=== PATIENT | male | born 1975 | race Caucasian/White ===

== ENCOUNTER 2020-10-17 17:09 | Inpatient (IN) | payer BC, SELFPAY ==
[2020-10-17] VITALS (8 sets, daily range): BP systolic 114–144; BP diastolic 68–82; PULSE 90–97; RESP 18–26; TEMP 36.8–38.5; O2SAT 90–100; BMI 34.2; BMI 34.0
--- NOTE | 2020-10-17 17:29 | EKG12_ITS ---
Test Reason : SOB Blood Pressure : / mmHG Vent. Rate : 097 BPM Atrial Rate : 097 BPM P-R Int : 156 ms QRS Dur : 080 ms QT Int : 340 ms P-R-T Axes : 035 032 043 degrees QTc Int : 431 ms Normal sinus rhythm Normal ECG Confirmed by JUAN JOSÉ HANEY, KIANNA ([id number]), photographic equipment inspector DANA LITTLEJOHN ([id number]) on 10/20/2020 2:18:29 PM Referred By: ЕЛЕНА Confirmed By:KIANNA CAN MD
--- NOTE | 2020-10-17 17:29 | CT_ITS ---
STUDY: CTA CHEST REASON FOR EXAM: Male, 44 years old. Hypoxia with walking in conversation, tachypnea, t RADIATION DOSAGE (If Supplied By Facility): CTDIvol = ( 15.04 ) mGy, DLP = ( 527.48 ) mGycm TECHNIQUE: The examination was performed with the intravenous administration of IV 100mL Isovue-370. Post-processing of the angiographic images was performed, with multiplanar reformation and 3D reconstruction. Individualized dose optimization techniques were used for this CT. COMPARISON: None. FINDINGS: 5.1 x 4.6 cm right thyroid cyst. Heart size and pericardium are unremarkable. The aorta is normal in caliber. No aneurysm or dissection. There is no mediastinal mass or adenopathy. There is no hilar or axillary adenopathy. Suboptimal pulmonary arterial opacification for evaluation of PE. No demonstrated embolus. Small subsegmental emboli could be missed. There is no pleural effusion. Extensive bilateral airspace disease consistent with pneumonia. Visualized abdomen is unremarkable. There is no osseous abnormality. CT/CTA Chest W/WO Contrast IMPRESSION: 1. Extensive bilateral pneumonia. Consider typical and atypical etiologies, including Covid-19 pneumonia. 2. Suboptimal pulmonary arterial opacification for evaluation of PE. No demonstrated pulmonary embolism. 3. Right thyroid cyst. Electronically Signed: Karley Damon MD at 19:35 EDT Tel , Service support ,
--- NOTE | 2020-10-17 17:35 | EDS_ITS ---
HPI History of Present Illness Chief Complaint: Shortness of Breath Detail of Chief Complaint: Covid symptoms that started 11 days ago Informant: patient, spouse/S.O. and PCP Onset/Context/Timing Onset: - (Today it was noted that his pulse ox went to 71% with walking) Context: sudden Timing: Continuous and Waxes and wanes Current Severity: Mild Maximum Severity: Severe Worsened by: Exertion and Coughing Relieved by: Nothing Associated Symptoms cough, rhinorrhea, post nasal drip, fever, sore throat, chills and sweats; Negative for ear pain, clear sputum, white sputum, yellow sputum or green sputum Chest Pain: Positive for None Narrative Narrative: Patient is a healthy 44-year-old medications on no meds who has a child that tested positive for Covid. The son is getting better. He has not. He has had a persistent fever. PE Risk Factors: Negative for Cancer, OCP + Smoking + > 35, Prior DVT or PE, Recent immobilization, Recent surgery and Recent travel Prior similar symptoms: Yes Recent Illness/Hospitalization: Yes PFSH PFSH no medical history Home Medications NK 10/17/20 [History Last Taken Unknown] no surgical history Social History (Updated 10/17/20 @ 17:[address] Sean Dobbins MD) household members: spouse and children Smoking Status: Never smoker alcohol intake: never substance use type: does not use ROS ROS ED Constitutional Constitutional ED: Reports chills, fever(s) and sweats Eyes Eyes: Denies blurry vision, change in vision or diplopia ENT ENT ED: Reports rhinorrhea and sore throat; Denies ear pain Cardiovascular Cardiovascular: Denies chest pain, orthopnea, palpitations or paroxysmal nocturnal dyspnea Respiratory/Chest Respiratory/Chest: Reports cough, dyspnea and dyspnea on exertion; Denies orthopnea, paroxysmal nocturnal dyspnea or sputum Gastrointestinal Gastrointestinal: Reports diarrhea; Denies abdominal pain, constipation, nausea or vomiting Genitourinary Genitourinary ED: Denies dysuria, hematuria or urinary frequency Musculoskeletal Musculoskeletal: Denies arthralgias, back pain, myalgias or neck pain Integumentary Denies rash Neurologic Neurologic: Denies headache(s), paresthesias or weakness Psychiatric Psychiatric: Denies anxiety, depression or suicidal thoughts Hematologic/Lymphatic Hematologic/Lymphatic: Denies easy bleeding or easy bruising EXAM Physical Exam Const Vital Signs: 10/17/20 17:09 10/17/20 17:33 10/17/20 19:14 Temperature 98.3 F Temperature Source Temporal Pulse Rate 97 Respiratory Rate 24 H Respiratory Effort Short of Breath Labored Respiratory Pattern Normal Blood Pressure 144/78 H 128/72 H Blood Pressure Mean 100 90 Pulse Ox 90 96 Oxygen Delivery Method Room Air Nasal Cannula Oxygen Flow Rate (L/min) 4 Positive well nourished, well developed and obese General Appearance ED: well developed Nutritional Appearance: obese HEENT Reports moist mucous membranes atraumatic and trauma; Negative for tenderness Eyes PERRL and EOMs intact bilaterally General Eye ED: Negative for pale conjunctiva or scleral icterus Neck no lymphadenopathy, supple, no meningeal signs and no JVD Resp normal respiratory effort and No clear to auscultation bilaterally Auscultation: rales right mid and lower Cardio regular rate, regular rhythm, S1 normal heart sound, S2 normal heart sound and no murmurs GI non-tender, non-distended and no masses Auscultation: normoactive bowel sounds Palpation: soft Back/Spine no CVA tenderness and normal to inspection Extremity normal to inspection Extremity Narrative: There is no asymmetry, swelling, discoloration, leg vein distention, palpable cords or tenderness along the distribution of the deep venous system. General Extremety ED: Negative for edema or tenderness General Extremity: Negative for edema Neuro oriented x3, CN's II-XII intact bilaterally and no sensory deficits noted Sensorium / Orientation: alert Motor Exam: strength 5/5 throughout Psych mental status grossly normal Thought Process: normal thought process Skin no wounds and skin turgor normal Skin Narrative: Patient has slight mottling noted on his back. Lesions: no lesions Rashes: no rashes MDM MDM MDM Narrative Medical decision making narrative: SPECT patient has Covid pneumonia. Since he is 11 days since onset concern for secondary infection and PE needs to be entertained. Work-up has been started. Since patient desaturated to 71% walking from triage to the examination room he will require admission. Lab Data Attestation: I reviewed the patient's lab results. Lab results narrative: CTA reveals no evidence of pulmonary embolus. Patient be admitted and treated for Covid pneumonia with respiratory failure Labs: Laboratory Results - last 24 hr 10/17/20 10/17/20 10/17/20 17:43 17:43 17:43 WBC 5.2 RBC 4.70 Hgb 15.0 Hct 44.1 MCV 93.8 MCH 31.9 MCHC 34.0 RDW Std Deviation 40.2 RDW Coeff of Ligia 11.7 Plt Count 203 MPV 10.5 Immature Gran % (Auto) 0.800 Neut % (Auto) 73.8 H Lymph % (Auto) 15.4 L [place] % (Auto) 10.0 Eos % (Auto) 0.0 Baso % (Auto) 0.0 Absolute Neuts (auto) 3.9 Absolute Lymphs (auto) 0.80 L Nucleated RBC % 0 Sodium 136 Potassium 4.1 Chloride 101 Carbon Dioxide 28.0 Anion Gap 7 BUN 11 Creatinine 1.04 Estim Creat Clear Calc 104.57 Est GFR (MDRD) Af Amer 100 Est GFR (MDRD) Non-Af 83 BUN/Creatinine Ratio 10.6 Glucose 96 Lactic Acid 1.7 Calcium 8.1 L Total Bilirubin 0.90 AST 112 H ALT 110 H Alkaline Phosphatase 68 Troponin I High Sens 10 Total Protein 7.5 Albumin 3.2 Globulin 4.3 H Albumin/Globulin Ratio 0.7 L Procalcitonin COVID-19 ([facility]) 10/17/20 10/17/20 17:43 17:50 WBC RBC Hgb Hct MCV MCH MCHC RDW Std Deviation RDW Coeff of Ligia Plt Count MPV Immature Gran % (Auto) Neut % (Auto) Lymph % (Auto) [place] % (Auto) Eos % (Auto) Baso % (Auto) Absolute Neuts (auto) Absolute Lymphs (auto) Nucleated RBC % Sodium Potassium Chloride Carbon Dioxide Anion Gap BUN Creatinine Estim Creat Clear Calc Est GFR (MDRD) Af Amer Est GFR (MDRD) Non-Af BUN/Creatinine Ratio Glucose Lactic Acid Calcium Total Bilirubin AST ALT Alkaline Phosphatase Troponin I High Sens Total Protein Albumin Globulin Albumin/Globulin Ratio Procalcitonin 0.10 H COVID-19 ([facility]ERAD) Positive Radiography Chest X-Ray - ED: 1 View (Bilateral interstitial infiltrates consistent with Covid. X-ray was interpreted by me at 1945.) Diagnostic Testing: Radiology Impression Chest CTA 10/17/20 17:29 IMPRESSION: 1. Extensive bilateral pneumonia. Consider typical and atypical etiologies, including Covid-19 pneumonia. 2. Suboptimal pulmonary arterial opacification for evaluation of PE. No demonstrated pulmonary embolism. 3. Right thyroid cyst. Electronically Signed: Karley Damon MD at 19:35 EDT Tel , Service support , EKG Initial EKG: Attestation: I personally reviewed and interpreted this EKG as follows: Interpretation: Sinus Rhythm (The EKG is normal. Ventricular rate is 97. MA interval 206 ms. Cures duration 80 ms. QT duration 3 and 40 ms. Dewey is normal.) Discharge Plan Dx/Rx/DC Orders Clinical Impression: Pneumonia due to 2019-nCoV, Acute respiratory failure with hypoxia Disposition Disposition: Acute Care Hospital [facility]
--- NOTE | 2020-10-17 17:35 | NURSING ---
NO OLD EKGS
[2020-10-17 18:06] LABS: Absolute Neutrophil Count 3.9 X10^3/uL (2.0-7.7); Hematocrit 44.1 % (40-54); Lymphocyte % 15.4 % (19-41); Mean Corpuscular Hgb 31.9 pg (27.0-32.0); Mean Corpuscular Volume 93.8 fL (80-94); Mean Platelet Vol. 10.5 fl (6.2-12.0); Monocyte# 0.52 X10^3/uL; NRBC Flagged by Analyzer 0 % (0-5); Neutrophil # 3.85 X10^3/uL (2.7-7.7); Neutrophil % 73.8 % (47-70); Platelet Count 203 K/mm3 (150-450); RBC Distribution Width CV 11.7 % (11.6-14.6); RBC Distribution Width SD 40.2 fl (35.1-43.9); White Blood Count 5.2 K/mm3 (4.4-11.0)
--- NOTE | 2020-10-17 18:28 | RAD_ITS ---
STUDY: X-RAY CHEST REASON FOR EXAM: Male, 44 years old. cough TECHNIQUE: Single AP portable view of the chest. COMPARISON: None. FINDINGS: No pleural effusion. Moderately extensive bilateral pulmonary opacities suspicious for pneumonia. Normal size heart. Normal mediastinum and deny. Normal visualized pulmonary arteries. Normal visualized aortic arch and descending thoracic aorta. Normal visualized thoracic spine. Normal visualized ribs, clavicles, and shoulders. There is no demonstrated abnormality of the visualized soft tissue structures of the upper abdomen. RAD/Chest 1 View (Portable) IMPRESSION: Bilateral pneumonia. Consider typical and atypical etiologies including Covid-19 pneumonia. Electronically Signed: Karley Damon MD at 20:00 EDT Tel , Service support ,
[2020-10-17 18:29] LABS: ALB/GLOB Ratio 0.7 RATIO (0.9-2.4); AST(SGOT) 112 U/L (15-37); Alanine Aminotransfer ALT/SGPT 110 U/L (16-61); Albumin, Serum 3.2 g/dL (3.2-5.0); Alkaline Phosphatase 68 U/L (45-117); Anion Gap 7 (5-15); BUN 11 mg/dL (7-18); BUN/Creat Ratio 10.6 RATIO (10-20); Calcium,Total 8.1 mg/dL (8.5-10.1); Chloride 101 mmol/L (98-107); Creatinine, Serum 1.04 mg/dL (0.70-1.30); EST Glomerular Filtration Rate 83 mL/min (>60); Est Glom Filt Rate - Afr Amer 100 mL/min (>60); Estimated Creatinine Clearance 104.57 ml/min; Globulin 4.3 g/dL (2.2-4.2); Glucose 96 mg/dL (74-106); Potassium 4.1 mmol/L (3.5-5.1); Protein, Total 7.5 g/dL (6.4-8.2); Sodium Level 136 mmol/L (136-145); Troponin-I HS 10 pg/mL (3.0-78.0)
[2020-10-17 18:34] LABS: Lactic Acid 1.7 mmol/L (0.4-1.9)
[2020-10-17 19:03] LABS: Probe Check PASS
[2020-10-17] MEDS: dexAMETHasone 10 MG/ML Vial IV (20:28)
--- NOTE | 2020-10-17 20:31 | HP.PCM.HOS_ITS ---
HPI - General HPI Narrative RAJI CAAL, is a 44 M who presents to the hospital with worsening shortness of breath. He started feeling sick with fevers 11 days ago. His son tested positive for Covid at school and has already completed quarantine and is back at school however he never got tested simply because he knew that his son had it so when he started having symptoms he knew that he had Covid. He did test positive today. He had a CT of the chest here in the ER which demonstrated no PEs but did show bilateral groundglass opacities consistent with viral pneumonia. He denies any chest pain, or lightheadedness. PFSH Home Medications ibuprofen 400 mg PO Q8H PRN 10/17/20 [History Last Taken 10/17/20] multivitamin 1 tab PO DAILY 10/17/20 [History Last Taken 10/16/20] Allergy/AdvReac Type Severity Reaction Status Date / Time No Known Allergies Allergy Verified 10/17/20 20:27 Social History (Updated 10/17/20 @ 17:[address] Sean Dobbins MD) household members: spouse and children Smoking Status: Never smoker alcohol intake: never substance use type: does not use ROS Constitutional Constitutional: Reports chills and fever(s); Denies fatigue or malaise Eyes Eyes: Denies blurry vision ENT HEENT: Denies headache(s) or nasal discharge Cardiovascular Cardiovascular: Denies chest pain, dyspnea on exertion or syncope Respiratory/Chest Respiratory/Chest: Reports cough and shortness of breath at rest; Denies shortness of breath with exertion Gastrointestinal Gastrointestinal: Reports diarrhea; Denies constipation, nausea or vomiting Genitourinary Genitourinary: Denies dysuria Neurologic Neurologic: Denies focal weakness, numbness or tremor(s) Psychiatric Psychiatric: Denies anxiety or depression Vital Signs Vital Signs Vital Signs: 10/17/20 17:09 10/17/20 17:33 10/17/20 19:14 Temperature 98.3 F Temperature Source Temporal Pulse Rate 97 Respiratory Rate 24 H Respiratory Effort Short of Breath Labored Respiratory Pattern Normal Blood Pressure 144/78 H 128/72 H Blood Pressure Mean 100 90 Pulse Ox 90 96 Oxygen Delivery Method Room Air Nasal Cannula Oxygen Flow Rate (L/min) 4 Weight Weight: 259 lb 11.272 oz Body Mass Index (BMI) 34.2 Physical Exam Const alert, oriented x3 and no apparent distress General Appearance: cooperative HEENT normocephalic and moist oral mucous membranes Eyes PERRL, EOMs intact bilaterally and conjunctivae normal Neck supple and no JVD Resp normal respiratory effort, no retractions and no use of accessory muscles Auscultation: crackles right base and diminished lung sounds left lower; Negative for rales, rhonchi or wheezes Cardio regular rate, regular rhythm, S1 normal heart sound, S2 normal heart sound and no murmurs GI soft to palpation, non-tender and non-distended; Negative for hepatosplenomegaly Extremity no clubbing, cyanosis or edema Skin no rashes or lesions noted Neuro no focal motor deficits and no sensory deficits noted Psych affect normal Appearance: appropriate Results Lab / Micro Data Result Diagrams: 10/17/20 17:43 10/17/20 17:43 Labs: Laboratory Results - last 24 hr 10/17/20 17:43: WBC 5.2, RBC 4.70, Hgb 15.0, Hct 44.1, MCV 93.8, MCH 31.9, MCHC 34.0, RDW Std Deviation 40.2, RDW Coeff of Ligia 11.7, Plt Count 203, MPV 10.5, Immature Gran % (Auto) 0.800, Neut % (Auto) 73.8 H, Lymph % (Auto) 15.4 L, [place] % (Auto) 10.0, Eos % (Auto) 0.0, Baso % (Auto) 0.0, Absolute Neuts (auto) 3.9, Absolute Lymphs (auto) 0.80 L, Nucleated RBC % 0 10/17/20 17:43: Sodium 136, Potassium 4.1, Chloride 101, Carbon Dioxide 28.0, Anion Gap 7, BUN 11, Creatinine 1.04, Estim Creat Clear Calc 104.57, Est GFR (MDRD) Af Amer 100, Est GFR (MDRD) Non-Af 83, BUN/Creatinine Ratio 10.6, Glucose 96, Calcium 8.1 L, Total Bilirubin 0.90, AST 112 H, ALT 110 H, Alkaline Phosphatase 68, Troponin I High Sens 10, Total Protein 7.5, Albumin 3.2, Globulin 4.3 H, Albumin/Globulin Ratio 0.7 L 10/17/20 17:43: Lactic Acid 1.7 10/17/20 17:43: Procalcitonin 0.10 H 10/17/20 17:50: COVID-19 ([facility]) Positive Radiology Impression Chest CTA 10/17/20 17:29 IMPRESSION: 1. Extensive bilateral pneumonia. Consider typical and atypical etiologies, including Covid-19 pneumonia. 2. Suboptimal pulmonary arterial opacification for evaluation of PE. No demonstrated pulmonary embolism. 3. Right thyroid cyst. Electronically Signed: Karley Damon MD at 19:35 EDT Tel , Service support , Chest X-Ray 10/17/20 18:28 IMPRESSION: Bilateral pneumonia. Consider typical and atypical etiologies including Covid-19 pneumonia. Electronically Signed: Karley Damon MD at 20:00 EDT Tel , Service support , Assessment & Plan Assessment/Plan (1) Acute respiratory failure with hypoxia: (2) Pneumonia due to 2019-nCoV: PLAN: 1. Acute hypoxic respiratory failure secondary to COVID-19 pneumonia -We will continue with Decadron, he is outside the window for remdesivir secondary to being 11 days with symptoms -We will continue with nasal cannula at 4 L and continue to monitor and increase as necessary -Discussed with him the need to continue with incentive spirometry and to am bulate. If necessary can also get him to prone himself -We will obtain a sputum culture and provide antibiotics if necessary -CTA was negative for PE -No history of diabetes however given the Decadron will put him on a carb controlled diet DVT: Lovenox Charges/Coding Visit Charges Inpatient E&M: 22669 Init Hosp L2
[2020-10-17] MEDS: Enoxaparin 40 MG/0.4 ML Syringe SC (21:45)
[2020-10-17] MEDS: Acetaminophen 325 MG Tablet 650 MG PO (21:46)
[2020-10-18] VITALS (12 sets, daily range): BP systolic 111–134; BP diastolic 63–86; PULSE 61–83; RESP 18–20; TEMP 35.8–36.9; O2SAT 88–94
--- NOTE | 2020-10-18 06:06 | NURSING ---
pandemic documentation
[2020-10-18] MEDS: 0.9% Saline Lock 10 ML Syringe IV ×2 (06:14→15:56)
[2020-10-18 07:43] LABS: Absolute Neutrophil Count 2.2 X10^3/uL (2.0-7.7); Basophil# 0.01 X10^3/uL; Basophil% 0.3 % (0-1); Hematocrit 45.5 % (40-54); Hemoglobin 15.2 g/dL (13.0-16.5); Lymphocyte % 22.4 % (19-41); Mean Corp Hgb Conc 33.4 g/dL (32-36); Mean Corpuscular Hgb 31.6 pg (27.0-32.0); Mean Corpuscular Volume 94.6 fL (80-94); Mean Platelet Vol. 10.6 fl (6.2-12.0); Monocyte# 0.23 X10^3/uL; Monocyte% 7.4 % (0-10); NRBC Flagged by Analyzer 0 % (0-5); Neutrophil # 2.15 X10^3/uL (2.7-7.7); Neutrophil % 68.9 % (47-70); POSITIVE MORPHOLOGY YES; Platelet Count 214 K/mm3 (150-450); RBC Distribution Width CV 11.7 % (11.6-14.6); RBC Distribution Width SD 40.4 fl (35.1-43.9); Red Blood Count 4.81 M/mm3 (4.6-6.2); White Blood Count 3.1 K/mm3 (4.4-11.0)
[2020-10-18 08:00] LABS: Differential Indicated SCAN CRITERIA MET
[2020-10-18 08:05] LABS: Anion Gap 4 (5-15); BUN 12 mg/dL (7-18); BUN/Creat Ratio 14.7 RATIO (10-20); Calcium,Total 8.7 mg/dL (8.5-10.1); Chloride 106 mmol/L (98-107); Creatinine, Serum 0.82 mg/dL (0.70-1.30); EST Glomerular Filtration Rate 109 mL/min (>60); Est Glom Filt Rate - Afr Amer 132 mL/min (>60); Estimated Creatinine Clearance 132.63 ml/min; Glucose 173 mg/dL (74-106); Potassium 4.6 mmol/L (3.5-5.1); Sodium Level 136 mmol/L (136-145)
[2020-10-18] MEDS: Enoxaparin 40 MG/0.4 ML Syringe SC ×2 (08:29→21:14)
[2020-10-18] MEDS: dexAMETHasone 4 MG Tablet 6 MG PO (08:29)
--- NOTE | 2020-10-18 08:40 | NURSING ---
This nurse encouraged and reviewed importance of using I.S, sitting in chair and laying prone in bed. Pt understands. Will monitor.
--- NOTE | 2020-10-18 09:40 | CASEMGMT ---
CLAUDIO LEA Assessment: Face to Face with pt for initial transition planning/care coordination assessment. CLAUDIO LEA introduced self and role at [facility], pt voices understanding and consents to assessment. Pt is A/O x4 and answers all questions appropriately at this time. Pt sitting up in bed in no distress with O2 on. Care providers, pharmacy, and demographics verified/updated. Admitting Dx: Complicated COVID PNA PCP:[facility] Specialists:Pt denies having any specialists. Preferred [facility]acy: [facility] Insurance: [place] Prescription Benefit: yes LW/HPOA: Pt denies having LW/DPOA or need for info regarding. LNOK: [facility]per [place], Living Arrangements: Pt lives with in a two story house with no steps to enter. Pt reports he is I in ADL's and denies concerns at home. Transportation: Pt drives self and denies concerns with transportation. DME/HHC/SNF: Pt denies having any DME, previous HHC or SNF stays. Pt denies drinking alcohol, smoking cigarettes, using street drugs or illegal drugs. 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 Provided pt with a verbal list of local in network DME companies. Pt chooses [email or web address]. Pt was tested at [facility] for COVID. His son was positive and is out of quarantine. His is quarantiining now as she has symptoms but has not been tested. Pt reports has has his inlaws who can bring groceries and supplies to him as they live less than a mile away. Pt states no concerns with going home at time of dc. Pt states no further concerns/needs. CM to follow. Advised pt to ask CM if any further question/concerns/needs arise, voices understanding. Pt Goal: Home Plan: Home
[2020-10-18 12:03] LABS: Atypical Lymphocyte 1+ %; Differential Comment SCANNED
--- NOTE | 2020-10-18 13:04 | PN.HOSP_ITS ---
Subjective Subjective Patient is admitted with 11-day symptom of intermittent fever, shortness of breath and mild dry cough. CTA did not show PE but bilateral groundglass opacity consistent with viral pneumonia. No chest pain. Objective Data Objective Data Vital Signs: Vital Signs Temp Pulse Resp BP Pulse Ox 97.3 F L 74 20 H 128/76 H 92 10/18/20 08:38 10/18/20 08:38 10/18/20 08:38 10/18/20 08:38 10/18/20 08:38 Oxygen Flow Rate (L/min) 4 Oxygen Delivery Method Nasal Cannula Weight: 258 lb 6.108 oz Body Mass Index (BMI) 34.0 Intake & Output: Intake and Output for Last 24 Hours 10/16/20 10/17/20 10/18/20 23:59 23:59 23:59 Intake Total 200 / 200 Balance 200 / 200 Lab / Micro Data Result Diagrams: 10/18/20 07:26 10/18/20 07:26 Labs: Laboratory Results - last 24 hr 10/17/20 17:43: WBC 5.2, RBC 4.70, Hgb 15.0, Hct 44.1, MCV 93.8, MCH 31.9, MCHC 34.0, RDW Std Deviation 40.2, RDW Coeff of Ligia 11.7, Plt Count 203, MPV 10.5, Im mature Gran % (Auto) 0.800, Neut % (Auto) 73.8 H, Lymph % (Auto) 15.4 L, [place] % (Auto) 10.0, Eos % (Auto) 0.0, Baso % (Auto) 0.0, Absolute Neuts (auto) 3.9, Absolute Lymphs (auto) 0.80 L, Nucleated RBC % 0 10/17/20 17:43: Sodium 136, Potassium 4.1, Chloride 101, Carbon Dioxide 28.0, Anion Gap 7, BUN 11, Creatinine 1.04, Estim Creat Clear Calc 104.57, Est GFR (MDRD) Af Amer 100, Est GFR (MDRD) Non-Af 83, BUN/Creatinine Ratio 10.6, Glucose 96, Calcium 8.1 L, Total Bilirubin 0.90, AST 112 H, ALT 110 H, Alkaline Phosphatase 68, Troponin I High Sens 10, Total Protein 7.5, Albumin 3.2, Globulin 4.3 H, Albumin/Globulin Ratio 0.7 L 10/17/20 17:43: Lactic Acid 1.7 10/17/20 17:43: Procalcitonin 0.10 H 10/17/20 17:50: COVID-19 ([facility]ER[facility]) Positive 10/18/20 07:26: WBC 3.1 L, RBC 4.81, Hgb 15.2, Hct 45.5, MCV 94.6 H, MCH 31.6, MCHC 33.4, RDW Std Deviation 40.4, RDW Coeff of Ligia 11.7, Plt Count 214, MPV 10 .6, Immature Gran % (Auto) 1.000 H, Neut % (Auto) 68.9, Lymph % (Auto) 22.4, [place] % (Auto) 7.4, Eos % (Auto) 0.0, Baso % (Auto) 0.3, Absolute Neuts (auto) 2.2, Absolute Lymphs (auto) 0.70 L, Nucleated RBC % 0, Differential Comment SCANNED, Atypical Lymphocytes 1+ 10/18/20 07:26: Sodium 136, Potassium 4.6, Chloride 106, Carbon Dioxide 26.0, Anion Gap 4 L, BUN 12, Creatinine 0.82, Estim Creat Clear Calc 132.63, Est GFR (MDRD) Af Amer 132, Est GFR (MDRD) Non-Af 109, BUN/Creatinine Ratio 14.7, Glucose 173 H, Calcium 8.7 Radiography Diagnostic Testing: Radiology Impression Chest CTA 10/17/20 17:29 IMPRESSION: 1. Extensive bilateral pneumonia. Consider typical and atypical etiologies, including Covid-19 pneumonia. 2. Suboptimal pulmonary arterial opacification for evaluation of PE. No demonstrated pulmonary embolism. 3. Right thyroid cyst. Electronically Signed: Karley Damon MD at 19:35 EDT Tel , Service support , Chest X-Ray 10/17/20 18:28 IMPRESSION: Bilateral pneumonia. Consider typical and atypical etiologies including Covid-19 pneumonia. Electronically Signed: Karley Damon MD at 20:00 EDT Tel , Service support , Physical Exam Narrative General: Alert, Oriented x3, Cooperative HEENT: Atraumatic, PERRLA, EOMI, Normocephalic Oral: No Gingival or Mucosal Lesions/ Ulcerations Neck: Supple, No JVD, Negative Carotid Bruits Lungs: Air entry diminished in bilateral lung bases. Fine expiratory rhonchi present. Hypoxia. Cardiovascular: Regular rate, Regular Rhythm, Normal S1, Normal S2, No murmurs Abdomen: Bowel Sounds Present, Soft, Non Tender, Non-Distended : No renal angle tenderness. No suprapubic tenderness. Extremities: No edema, Capillary Refill Less than 3 Seconds Skin: No rashes, No breakdown Musculoskeletal: No Tenderness to Palpation of Joints or Extremities Neurological: Cranial nerves II-XII grossly intact, DTR 2+/4 and Symmetrical, Neuro grossly intact Psych/Mental Status: Normal Affect, Appropriate. Assessment & Plan Assessment/Plan (1) Acute respiratory failure with hypoxia: (2) Pneumonia due to 2019-nCoV: PLAN: The patient is admitted with 11 days symptoms started with fever and then shortness of breath. COVID-19 PCR positive 1. Acute hypoxic respiratory failure secondary to COVID-19 pneumonia: On Decadron. Patient is outside the window of remdesivir. On 4 L of oxygen. Blood cultures x2 are pending. Sputum culture is ordered but patient did not had sample. Patient denies history of chronic lung disease, or smoking history. -2. No history of diabetes however given the Decadron will put him on a carb controlled diet DVT: Lovenox Charges/Coding Visit Charges Inpatient E&M: 80414 Subs Hosp L2
--- NOTE | 2020-10-18 13:59 | NURSING ---
Pt is aware that a sputum is needed. Specimen cup given.
--- NOTE | 2020-10-18 22:44 | PCS.PANDOC ---
PANDEMIC DOCUMENTATION INITIATED: Date: 09/22/2020 Time: 190
[2020-10-19] VITALS (7 sets, daily range): BP systolic 117–132; BP diastolic 64–87; PULSE 71–74; RESP 18–20; TEMP 36.4–36.8; O2SAT 91–95
[2020-10-19] MEDS: dexAMETHasone 4 MG Tablet 6 MG PO (09:15)
[2020-10-19] MEDS: Enoxaparin 40 MG/0.4 ML Syringe SC ×2 (09:15→22:11)
--- NOTE | 2020-10-19 10:51 | NURSING ---
Pt layed prone from 0930 to 1000 today but then from 1000 until now pt was laying on his side. spo2 90% on 5L NC
--- NOTE | 2020-10-19 12:31 | PN.HOSP_ITS ---
Subjective Subjective No fever overnight. Last fever on 10/17 at 9 PM Objective Data Objective Data Vital Signs: Vital Signs Temp Pulse Resp BP Pulse Ox 98.2 F 74 20 H 117/68 92 10/19/20 10:51 10/19/20 10:51 10/19/20 10:51 10/19/20 10:51 10/19/20 10:51 Oxygen Flow Rate (L/min) 6 Oxygen Delivery Method Nasal Cannula Weight: 258 lb 6.108 oz Body Mass Index (BMI) 34.0 Intake & Output: Intake and Output for Last 24 Hours 10/17/20 10/18/20 10/19/20 23:59 23:59 23:59 Intake Total 1540 / 1540 540 / 540 Output Total 400 / 400 Balance 1540 / 1540 140 / 140 Lab / Micro Data Result Diagrams: 10/18/20 07:26 10/18/20 07:26 Micro: Microbiology 10/18/20 17:15 Sputum, Expectorated/Coughed Respiratory Culture - Preliminary Alpha Hemolytic Streptococcus Physical Exam Narrative General: Alert, Oriented x3, Cooperative HEENT: Atraumatic, PERRLA, EOMI, Normocephalic Oral: No Gingival or Mucosal Lesions/ Ulcerations Neck: Supple, No JVD, Negative Carotid Bruits Lungs: Air entry diminished in bilateral lung bases. Fine expiratory rhonchi present. Hypoxia. Cardiovascular: Regular rate, Regular Rhythm, Normal S1, Normal S2, No murmurs Abdomen: Bowel Sounds Present, Soft, Non Tender, Non-Distended : No renal angle tenderness. No suprapubic tenderness. Extremities: No edema, Capillary Refill Less than 3 Seconds Skin: No rashes, No breakdown Musculoskeletal: No Tenderness to Palpation of Joints or Extremities Neurological: Cranial nerves II-XII grossly intact, DTR 2+/4 and Symmetrical, Neuro grossly intact Psych/Mental Status: Normal Affect, Appropriate. Assessment & Plan Assessment/Plan (1) Acute respiratory failure with hypoxia: (2) Pneumonia due to 2019-nCoV: PLAN: The patient is admitted with 11 days symptoms started with fever and then shortness of breath. COVID-19 PCR positive 1. Acute hypoxic respiratory failure secondary to COVID-19 pneumonia: On Decadron. Patient is outside the window of remdesivir. On 4 L of oxygen. Blood cultures x2 are pending. Sputum culture is ordered but patient did not h ad sample. Patient denies history of chronic lung disease, or smoking history. 10/19: Continue present treatment. Incentive spirometry. Prone positioning. -2. No history of diabetes however given the Decadron will put him on a carb controlled diet DVT: Lovenox Charges/Coding Visit Charges Inpatient E&M: 25922 Subs Hosp L2
[2020-10-19] MEDS: 0.9% Saline Lock 10 ML Syringe IV ×2 (15:08→18:43)
[2020-10-19] MEDS: Ceftriaxone 1 GM/50 ML BAG IV (18:43)
[2020-10-20] VITALS (9 sets, daily range): BP systolic 107–121; BP diastolic 62–78; PULSE 67–72; RESP 18; TEMP 36.4–37.2; O2SAT 94–96
[2020-10-20 06:48] LABS: Absolute Lymphocyte Count 1.35 X10^3/uL (0.83-4.51); Absolute Neutrophil Count 5.9 X10^3/uL (2.0-7.7); Hematocrit 42.6 % (40-54); Hemoglobin 14.3 g/dL (13.0-16.5); Lymphocyte # 1.35 X10^3/ul (0.83-4.51); Lymphocyte % 16.4 % (19-41); Mean Corp Hgb Conc 33.6 g/dL (32-36); Mean Corpuscular Hgb 31.8 pg (27.0-32.0); Mean Corpuscular Volume 94.7 fL (80-94); Mean Platelet Vol. 10.8 fl (6.2-12.0); Monocyte# 0.93 X10^3/uL; Monocyte% 11.3 % (0-10); NRBC Flagged by Analyzer 0 % (0-5); Neutrophil # 5.93 X10^3/uL (2.7-7.7); Neutrophil % 71.9 % (47-70); POSITIVE MORPHOLOGY YES; Platelet Count 323 K/mm3 (150-450); RBC Distribution Width CV 11.7 % (11.6-14.6); RBC Distribution Width SD 41.2 fl (35.1-43.9); White Blood Count 8.2 K/mm3 (4.4-11.0)
[2020-10-20 06:57] LABS: Differential Indicated SCAN CRITERIA MET
[2020-10-20 07:27] LABS: Anion Gap 6 (5-15); BUN 22 mg/dL (7-18); BUN/Creat Ratio 28.3 RATIO (10-20); Calcium,Total 8.6 mg/dL (8.5-10.1); Chloride 106 mmol/L (98-107); Creatinine, Serum 0.78 mg/dL (0.70-1.30); EST Glomerular Filtration Rate 116 mL/min (>60); Est Glom Filt Rate - Afr Amer 140 mL/min (>60); Estimated Creatinine Clearance 139.43 ml/min; Glucose 113 mg/dL (74-106); Potassium 4.5 mmol/L (3.5-5.1); Sodium Level 138 mmol/L (136-145)
[2020-10-20] MEDS: Ceftriaxone 1 GM/50 ML BAG IV (10:13)
[2020-10-20] MEDS: dexAMETHasone 4 MG Tablet 6 MG PO (10:14)
[2020-10-20] MEDS: Enoxaparin 40 MG/0.4 ML Syringe SC ×2 (10:14→20:13)
--- NOTE | 2020-10-20 15:00 | PCM.PN.HOSP ---
Subjective Subjective No fever. Patient on 5 to 6 L of oxygen. Objective Data Objective Data Vital Signs: Vital Signs Temp Pulse Resp BP Pulse Ox 98.3 F 70 18 114/74 94 10/20/20 08:47 10/20/20 08:47 10/20/20 08:47 10/20/20 08:47 10/20/20 13:20 Oxygen Flow Rate (L/min) 5 Oxygen Delivery Method Nasal Cannula Weight: 258 lb 6.108 oz Body Mass Index (BMI) 34.0 Intake & Output: Intake and Output for Last 24 Hours 10/18/20 10/19/20 10/20/20 23:59 23:59 23:59 Intake Total 1540 / 1540 1532.50 / 1532.50 1250 / 1250 Output Total 400 / 400 400 / 400 Balance 1540 / 1540 1132.50 / 1132.50 850 / 850 Lab / Micro Data Result Diagrams: 10/20/20 06:24 10/20/20 06:24 Labs: Laboratory Results - last 24 hr 10/20/20 06:24: WBC 8.2, RBC 4.50 L, Hgb 14.3, Hct 42.6, MCV 94.7 H, MCH 31.8, MCHC 33.6, RDW Std Deviation 41.2, RDW Coeff of Ligia 11.7, Plt Count 323, MPV 10.8, Immature Gran % (Auto) 0.400, Neut % (Auto) 71.9 H, Lymph % (Auto) 16.4 L, Jennings % (Auto) 11.3 H, Eos % (Auto) 0.0, Baso % (Auto) 0.0, Absolute Neuts (auto) 5.9, Absolute Lymphs (auto) 1.35, Nucleated RBC % 0 10/20/20 06:24: Sodium 138, Potassium 4.5, Chloride 106, Carbon Dioxide 26.0, Anion Gap 6, BUN 22 H, Creatinine 0.78, Estim Creat Clear Calc 139.43, Est GFR (MDRD) Af Amer 140, Est GFR (MDRD) Non-Af 116, BUN/Creatinine Ratio 28.3 H, Glucose 113 H, Calcium 8.6 Micro: Microbiology 10/18/20 17:15 Sputum, Expectorated/Coughed Gram Stain - Final 10/18/20 17:15 Sputum, Expectorated/Coughed Respiratory Culture - Preliminary Appears to be normal respiratory asuncion. Further studies to follow. 10/17/20 18:00 Blood Culture (Wb) - No Site/Description Given Blood Culture - Preliminary No growth in 48 hours. 10/17/20 17:43 Blood Culture (Wb) - Anticubital Left Blood Culture - Preliminary No growth in 48 hours. Physical Exam Narrative General: Alert, Oriented x3, Cooperative HEENT: Atraumatic, PERRLA, EOMI, Normocephalic Oral: No Gingival or Mucosal Lesions/ Ulcerations Neck: Supple, No JVD, Negative Carotid Bruits Lungs: Air entry diminished in bilateral lung bases. Bilateral fine crepitations. Hypoxia. Cardiovascular: Regular rate, Regular Rhythm, Normal S1, Normal S2, No murmurs Abdomen: Bowel Sounds Present, Soft, Non Tender, Non-Distended : No renal angle tenderness. No suprapubic tenderness. Extremities: No edema, Capillary Refill Less than 3 Seconds Skin: No rashes, No breakdown Musculoskeletal: No Tenderness to Palpation of Joints or Extremities Neurological: Cranial nerves II-XII grossly intact, DTR 2+/4 and Symmetrical, Neuro grossly intact Psych/Mental Status: Normal Affect, Appropriate. Assessment & Plan Assessment/Plan (1) Acute respiratory failure with hypoxia: (2) Pneumonia due to 2019-nCoV: PLAN: The patient is admitted with 11 days symptoms started with fever and then shortness of breath. COVID-19 PCR positive 1. Acute hypoxic respiratory failure secondary to COVID-19 pneumonia: On Decadron. Patient is outside the window of remdesivir. On 4 L of oxygen. Blood cultures x2 are pending. Sputum culture is ordered but patient did not had sample. Patient denies history of chronic lung disease, or smoking history. 10/19: Continue present treatment. Incentive spirometry. Prone positioning. 10/20: On 5 to 6 L of oxygen. Continue above treatment. -2. No history of diabetes however given the Decadron will put him on a carb controlled diet DVT: Lovenox Charges/Coding Visit Charges Inpatient E&M: 03864 Subs Hosp L2
[2020-10-21 03:23] VITALS: BP 133/88; PULSE 57; RESP 18; TEMP 36.5; O2SAT 96
[2020-10-21 07:42] VITALS: BP 115/78; PULSE 61; RESP 18; TEMP 36.8; O2SAT 92
[2020-10-21 07:48] VITALS: O2SAT 95
--- NOTE | 2020-10-21 09:07 | PCM.DC ---
Discharge Instructions Diet Discharge Diet: No restrictions Activity Discharge Activity: Return to Normal Activity and - (Quarantine for 21 days from the first day of the symptom onset) Dressing / Incision Call your doctor if you observe: Fever of 101 or Higher, Coldness, Increased Pain, Numbness or Tingling, Change in Color, Inability to urinate, Inability to have a bowel movement, Shortness of breath, Dizziness, Fainting spells, Swelling in the ankles, Chest pain, Prolonged hiccupping, Increased palpitations (irregular heartbeat), Calf discomfort and Uncontrolled pain Follow Up Care Test Results: Test results from this visit will be discussed in further detail at your follow-up appointment, if applicable. Discharge Plan Admission Admit Date/Time: 10/17/20 20:04 Primary Reason for Your Visit: Acute hypoxic respiratory failure secondary to COVID-19 Attending Provider: Celso Melgar Primary Care Provider: Rosalee Pulliam Instructions Patient Instructions: COVID-19: Lying in a Prone Position (Proning) Additional Instructions / Restrictions: Discharge on incentive spirometry and Pep to continue for 2 weeks Discharge Orders/Prescriptions Prescriptions: New dexamethasone [Decadron] 6 mg tablet 6 mg PO DAILY Qty: 6 RF: 0 pseudoephedrine-guaifenesin [Mucinex D] 60-600 mg tablet extended release 12 hr 2 tab PO BID Qty: 20 RF: 0 Eliquis 2.5 mg tablet 2.5 mg PO BID Qty: 30 RF: 0 Continued multivitamin Tablet 1 tab PO DAILY RF: 0 ibuprofen 200 mg Tablet 400 mg PO Q8H PRN (Reason: Pain) RF: 0 Referrals / Follow Up: Rosalee Pulliam MD [Primary Care Provider] - In 1 Week Disposition Disposition (needs filled in before D/C Order can be placed): Home, Self Care
--- NOTE | 2020-10-21 09:15 | DS.PCM_ITS ---
Providers Date of Admission: 10/17/20 Primary Care Physician: Dr. Rosalee Pulliam MD Reason For Visit: COVID PNEUMONIA Diagnosis Discharge Diagnosis (1) Acute respiratory failure with hypoxia: Status: Acute Code(s): J96.01 - Acute respiratory failure with hypoxia (2) Pneumonia due to 2019-nCoV: Status: Acute Code(s): U07.1 - COVID-19; J12.82 - Pneumonia due to coronavirus disease 2019 Medications at Discharge Home Medications ibuprofen 400 mg PO Q8H PRN 10/17/20 multivitamin 1 tab PO DAILY 10/17/20 apixaban [Eliquis] 2.5 mg PO BID #30 tab 10/21/20 dexamethasone [Decadron] 6 mg PO DAILY #6 tab 10/21/20 pseudoephedrine-guaifenesin [Mucinex D] 2 tab PO BID #20 tab 10/21/20 Hospital Course Summary of Care Provided Hospital Course: The patient is admitted with 11 days symptoms started with fever and then shortness of breath. COVID-19 PCR positive 1. Acute hypoxic respiratory failure secondary to COVID-19 pneumonia: On Decadr on. Patient is outside the window of remdesivir. On 4 L of oxygen. Blood culture negative for more than 48 hours. Sputum/respiratory culture shows mixed normal respiratory asuncion. Patient denies history of chronic lung disease, or smoking history. Patient encouraged to have incentive spirometry, prone positioning and continue Pap at home. Home qualification oxygen was done. Pulse ox 89% on room air, 86% ambulating on room air and 86% on 2 L of oxygen ambulating. Discharged home on oxygen. -2. No history of diabetes however given the Decadron will put him on a carb controlled diet Patient is ambulatory in home and in the community and requires home oxygen with portability. Discharge medication reconciliation done. Discharge follow- up instructions completed. Discharge process discussed with the patient and all questions were answered to patient's satisfaction. Total time spent, exact 35 minutes on discharge meds reconciliation, examination, coordination of care with nurses and ancillary staff, review of imaging and blood test and discussion with the patient on follow-up instructions Physical Exam Narrative General: Alert, Oriented x3, Cooperative HEENT: Atraumatic, PERRLA, EOMI, Normocephalic Oral: No Gingival or Mucosal Lesions/ Ulcerations Neck: Supple, No JVD, Negative Carotid Bruits Lungs: Air entry diminished in bilateral lung bases. Lungs clear. Mild hypoxia. Cardiovascular: Regular rate, Regular Rhythm, Normal S1, Normal S2, No murmurs Abdomen: Bowel Sounds Present, Soft, Non Tender, Non-Distended : No renal angle tenderness. No suprapubic tenderness. Extremities: No edema, Capillary Refill Less than 3 Seconds Skin: No rashes, No breakdown Musculoskeletal: No Tenderness to Palpation of Joints or Extremities Neurological: Cranial nerves II-XII grossly intact, DTR 2+/4 and Symmetrical, Neuro grossly intact Psych/Mental Status: Normal Affect, Appropriate. Weight / BMI Weight Weight: 258 lb 6.108 oz Body Mass Index (BMI) 34.0 ABG / Lab / Microbiology Data Result Diagrams: 10/20/20 06:24 10/20/20 06:24 Microbiology: Microbiology 10/18/20 17:15 Sputum, Expectorated/Coughed Gram Stain - Final 10/18/20 17:15 Sputum, Expectorated/Coughed Respiratory Culture - Final 10/17/20 18:00 Blood Culture (Wb) - No Site/Description Given Blood Culture - Preliminary No growth in 48 hours. 10/17/20 17:43 Blood Culture (Wb) - Anticubital Left Blood Culture - Preliminary No growth in 48 hours. D/C Instructions Discharge Diet: No restrictions Call your doctor if you observe: Fever of 101 or Higher, Coldness, Increased Pain, Numbness or Tingling, Change in Color, Inability to urinate, Inability to have a bowel movement, Shortness of breath, Dizziness, Fainting spells, Swelling in the ankles, Chest pain, Prolonged hiccupping, Increased palpitations (irregular heartbeat), Calf discomfort and Uncontrolled pain Meaningful Use Info Meaningful Use Diagnoses (Choose all that apply): None applicable Discharge Plan Admission Admit Date/Time: 10/17/20 20:04 Primary Reason for Your Visit: Acute hypoxic respiratory failure secondary to COVID-19 Attending Provider: Celso Melgar Primary Care Provider: Rosalee Pulliam Instructions Patient Instructions: COVID-19: Lying in a Prone Position (Proning) Additional Instructions / Restrictions: Discharge on incentive spirometry and Pep to continue for 2 weeks Discharge Orders/Prescriptions Prescriptions: New dexamethasone [Decadron] 6 mg tablet 6 mg PO DAILY Qty: 6 RF: 0 pseudoephedrine-guaifenesin [Mucinex D] 60-600 mg tablet extended release 12 hr 2 tab PO BID Qty: 20 RF: 0 Eliquis 2.5 mg tablet 2.5 mg PO BID Qty: 30 RF: 0 Continued multivitamin Tablet 1 tab PO DAILY RF: 0 ibuprofen 200 mg Tablet 400 mg PO Q8H PRN (Reason: Pain) RF: 0 Referrals / Follow Up: Rosalee Pulliam MD [Primary Care Provider] - In 1 Week Disposition Disposition (needs filled in before D/C Order can be placed): Home, Self Care Charges/Coding Visit Charges Inpatient E&M: 89568 Disch Hosp
[2020-10-21 10:00] VITALS: RESP 18
[2020-10-21] MEDS: Enoxaparin 40 MG/0.4 ML Syringe SC (10:10)
[2020-10-21] MEDS: dexAMETHasone 4 MG Tablet 6 MG PO (10:10)
[2020-10-21] MEDS: Ceftriaxone 1 GM/50 ML BAG IV (10:11)
[2020-10-21 11:54] VITALS: O2SAT 86; O2SAT 89; O2SAT 96
--- NOTE | 2020-10-21 12:03 | CASEMGMT ---
Addendum entered by Lucretia Ivan 10/21/20 12:24: TC to [facility] in [place], pt eliquis cost is $180.22. Pt provided with an eliquis savings card via [employer] who is going into room. TC to pt room to make aware of eliquis card and explanation given. Pt is also aware that the O2 has been ordered and a tank will arrive to the floor. Pt denies any further questions. Original Note: Pt qualified for home O2, [place] to [facility] [place]. TC to [facility] [place], spoke to Erica. She states as soon as the technicians are available, they will be up with the tank.
[2020-10-21 15:32] VITALS: BP 125/70; PULSE 72; RESP 18; TEMP 36.9; O2SAT 97
--- NOTE | 2020-10-21 15:47 | PHA.DC.MC ---
Pharmacy Service has performed discharge medication reconciliation and counseling for this patient. Counseling completed via telephone due to COVID precautions. 1. APIXABAN 2.5MG PO BID 2. DEXAMETHASONE 6MG PO DAILY X 6 DAYS 3. MUCINEX-D 2T PO BID X 5 DAYS The patient's discharge medication list was reviewed for discrepancies and discrepancies were resolved. Home Medications ibuprofen 400 mg PO Q8H PRN 10/17/20 multivitamin 1 tab PO DAILY 10/17/20 apixaban [Eliquis] 2.5 mg PO BID #30 tab 10/21/20 dexamethasone [Decadron] 6 mg PO DAILY #6 tab 10/21/20 pseudoephedrine-guaifenesin [Mucinex D] 2 tab PO BID #20 tab 10/21/20 The patient was counseled on the following discharge medications and changes in medications for homegoing were reviewed. The Reason for Use, instructions for use, and potential side effects were reviewed for all new medications. The patient's questions regarding all of their medications were answered. The patient was able to verbally demonstrate an understanding of their discharge medications.
--- NOTE | 2020-10-22 14:41 | CASEMGMT ---
CLAUDIO LEA Discharge COVID Follow Up Phone Call: BRENDA: Colton Strata:2 Call Date: 10/22/20 Discharge Date: 10/21/20 Time of Call:[id number] Duration: 3 min Admitting Dx: COVID 19 PNA CLAUDIO LEA completed follow up phone call after recent hospitalization. Pt states he is doing well. Pt has his O2 concentrator and portable tank. Pt has a pulse ox and he states it has been running at 95%. Pt was able to obtain his rx without difficulty. Pt is getting ready to call his PCP to make fu appt. He denies further questions or concerns.
== END 2020-10-21 16:34 | disposition home or self-care (01) | DRG 177 ==
LOC: ED 19:46 → MS3 20:31
PROVIDERS: Admitting Provider Family Medicine; Emergency Provider Emergency Medicine; PCP Family Medicine; Visit Provider Internal Medicine
DX: U07.1 COVID-19 (principal); J12.82 Pneumonia due to coronavirus disease 2019; J96.01 Acute respiratory failure with hypoxia; Z20.822 Contact with and (suspected) exposure to COVID-19
CPT/HCPCS: 36415; 71045; 71275; 80048; 80053; 83605; 84145; 84484; 85025; 87040; 87070; 87205; 87635; 93005; 94667; 99251; 99285; J7050; Q9967; U0005; A4216; G0463; U0003